=== PATIENT | male | born 1970 | race Caucasian/White ===

== ENCOUNTER 2020-02-21 12:11 | Outpatient (CLI) | payer OTHER, SELFPAY ==
[2020-02-21 23:57] LABS: SARS-CoV-2 RNA PCR Positive
== END 2020-02-21 12:12 | disposition home or self-care (01) ==
LOC: CHSLAB 12:13
PROVIDERS: PCP Family Medicine; Visit Provider Family Medicine
DX: U07.1 COVID-19 (principal)
CPT/HCPCS: 87635; C9803; U0003

== ENCOUNTER 2020-06-04 11:26 | Outpatient (CLI) | payer OTHER, SELFPAY ==
[2020-06-04 14:09] LABS: SARS-CoV-2 Ag Negative (Negative)
== END 2020-06-04 11:27 | disposition home or self-care (01) ==
LOC: CHSLAB 11:28
PROVIDERS: PCP Family Medicine; Visit Provider Family Medicine
DX: Z20.828 Contact with and (suspected) exposure to other viral communicable diseases (principal)
CPT/HCPCS: 87426

== ENCOUNTER 2024-05-16 14:26 | Outpatient (CLI) | payer BC, SELFPAY ==
--- NOTE | ~2024-05-16 | US_ITS ---
EXAMINATION: US soft tissue head and neck DATE: 05/16/2024 14:51 INDICATION: Left neck lump. TECHNIQUE: Multiple grayscale and Doppler ultrasound images of the thyroid were obtained. COMPARISON: None FINDINGS: The right thyroid lobe measures 4.8 x 2.0 x 2.5 cm. The left thyroid lobe measures 6.7 x 4. 4 x 3.8 cm. In the right thyroid lobe, there is a 2.8 cm solid, hypoechoic, wider than tall nodule wi th ill-defined margin without echogenic foci (TI-RADS TR4). In the left thyroid lobe, there is a 3.2 cm solid, isoechoic, taller than wide nodule with ill-defined margin without echogenic foci (TR4). In the left thyroid lobe, there is a 3.3 cm solid, hyperechoic, wider than tall nodule with ill-defined margin without echogenic foci (TR3). IMPRESSION: 1. Thyroid nodules. Ultrasound-guided fine-needle aspiration of 2 nodules is recommended. Reviewed, dictated and finalized at location A. DIMPLING MACHINE OPERATOR IMPRESSION: 1. Thyroid nodules. Ultrasound-guided fine-needle aspiration of 2 nodules is re commended.
== END 2024-05-16 14:27 | disposition home or self-care (01) ==
LOC: CHSIMG 14:28
PROVIDERS: PCP Family Medicine; Visit Provider Family Medicine
DX: E04.2 Nontoxic multinodular goiter (principal); R22.1 Localized swelling, mass and lump, neck
CPT/HCPCS: 76536

== ENCOUNTER 2024-09-20 09:11 | Outpatient (CLI) | payer BC, SELFPAY ==
--- NOTE | ~2024-09-20 | CT_ITS ---
CT scan of the Neck Technique: 2.5 mm axial scans were obtained through the neck after intravenous administration of 75 c c Omnipaque 350. Coronal and sagittal reconstructions of the neck were obtained. Dose reduction techn ique was used on this scan by utilizing automated exposure control and iterative reconstruction techn ique. The dose-length product (DLP) was 602.16 mGy-cm. Clinical History: Follicular neoplasm of the thyroid, hyperparathyroidism Findings: There is no evidence of any significant cervical lymphadenopathy. Several small, nonenlarged jugulo- digastric and posterior cervical lymph nodes are noted bilaterally. Parapharyngeal spaces appear norm al bilaterally. The parotid and submandibular glands appear normal. The pharyngeal mucosal spaces appear normal. No soft tissue masses are seen in the neck. There is a solid left thyroid lobe nodule measuring approximately 5.8 x 4.9 x 6.5 cm in size.. Images of the lung apices reveal no abnormalities. Impression: 5.8 x 4.9 x 6.5 cm solid, enhancing left thyroid lobe nodule. This could reflect a neoplastic nodule. Correlate with prior biopsy results. No distinct evidence for metastatic disease in the neck. Reviewed, dictated and finalized at location . Impression: 5.8 x 4.9 x 6.5 cm solid, enhancing left thyroid lobe nodule. This could reflec t a neoplastic nodule. Correlate with prior biopsy results. No distinct evidence for metastatic disease in the neck.
--- OUTSIDE RECORDS SUMMARY | 2024-09-20 09:44 | XMS_ITS | Referral Summary ---
Author Organization [address] Address [address] [place] [phone] Care Team Providers Care Art Psychotherapist Or Therapist Name Role Phone Tim Montesinos MD Primary Care Provide r Encounters Date Type Department Care Team Description 09/16/2024 4:45 PM CDT Lab [facility] - Lab Collection [address] [place] [address] [address] [place] [address] Follicular neoplasm of thyroid 09/16/2024 Orders Only [facility] Surgery [address] [place] [phone] Wendi Carias MD Follicular neoplasm of thyroid (Primary Dx) 09/16/2024 7:29 AM CDT - 09/16/2024 11:59 PM CDT Hospital Encounter [facility] ([facility]) [address] [place] [id number] Thyroid nodule Discharge Disposition: Discharge to home or self care 09/16/2024 2:00 PM CDT Office Visit [facility] [address] [place] [address] 5 [place] [address] Wendi Carias MD Follicular neoplasm of thyroid 08/31/2024 Telephone [facility] [address] [place] [phone] Tanvi Hoffman RN 08/18/2024 Orders Only [facility] [address] [place] [address] Wendi Carias MD Thyroid nodule 08/11/2024 Orders Only [facility] [address] [place] [phone] Wendi Carias MD Thyroid nodule (Primary Dx) 08/02/2024 Orders Only [facility] [address] [facility] Floor 5 [place] [phone] Wendi Carias MD Thyroid nodule (Primary Dx) 08/02/[address] 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 Gender Identity Not on file Sexual Orientation Not on file Last Filed Vital Signs Vital Sign Reading Time Taken Comments Blood Pressure 123/83 09/16/2024 1:55 PM CDT Pulse 125 09/16/2024 1:55 PM CDT Temperature 36.9 C (98.4 F) 09/16/2024 1:55 PM CDT Respiratory Rate 18 09/16/2024 1:55 PM CDT Oxygen Saturation 98% 09/16/2024 1:55 PM CDT Inhaled Oxygen Concentration - - Weight 85.3 kg (188 lb) 09/16/2024 1:55 PM CDT Height 172.7 cm (5' 8 ) 09/16/2024 1:55 PM CDT Body Mass Index 28.59 09/16/2024 1:55 PM CDT Plan of Treatment Upcoming Encounters Date Type Department Care Team (Latest Contact Info) Description 12/12/2024 7:30 AM CDT Hospital Encounter [facility] Operating [facility] ([facility]) Counts include 234 beds at the [facility] [place] [address] Wendi Carias MD [address] [facility] [phone] [place] [address] 12/12/2024 7:30 AM CDT - 12/12/2024 10:40 AM CDT Surgery [facility] Operating Room [facility] ([facility] Counts include 234 beds at the [facility] [place] [address] Wendi Carias MD [address] [facility] [phone] [place] [address] LEFT THYROID LOBECTOMY Scheduled Procedures Name Priority Associated Diagnoses Date/Ti me LOBECTOMY - THYROID Thyroid nodule 12/12/2024 7:30 AM CDT THYROIDECTOMY - TOTAL Thyroid nodule 12/12/2024 7:30 AM CDT EXCISION NECK/DISSECTION LYM PH NODE Thyroid nodule 12/12/2024 7:30 AM CDT Procedures Procedure Name Priority Date/Time Associated Diagnosis Comments EGFR Routine 09/16/2024 4:36 PM CDT Follicular neoplasm of thyroid CBC WITHOUT DIFFERENTIAL Routine 09/16/2024 4:36 PM CDT Follicular neoplasm of thyroid RENAL FUNCTION PANEL Routine 09/16/2024 4:36 PM CDT Follicular neoplasm of thyroid PROTIME-INR Routine 09/16/2024 4:36 PM CDT Follicular neoplasm of thyroid THYROID FUNCTION CASCADE Routine 09/16/2024 4:36 PM CDT Follicular neoplasm of thyroid US THYROID Schedule Routine, Read Routine (OP Routine) 09/16/2024 8:12 AM CDT Thyroid nodule SURGICAL PATHOLOGY Routine 08/18/2024 2: 50 PM TRUSS PULLER HELPER Thyroid nodule from Last 3 Months Results * eGFR (09/16/2024 4:36 PM CDT) eGFR >90 >=60 mL/min/1. 73 m2 Comment: Interpretive Data Reference Interval Normal >/= 90 mL/min/1.73m2 Mildly decreased* 60 - 89 mL/min/1.73m2 Mildly to moderately decreased 45 - 59 mL/min/1.73m2 Moderately to severely decreased 30 - 44 mL/min/1.73m2 Severely decreased 15 - 29 mL/min/1.73m2 Kidney Failure < 15 mL/min/1.73m2 *Relative to young adult level Estimated glomerular filtration rate is determined by the 2020 CKD-EPI equation recommended by the National Kidney Foundation (A Unifying Approach to GFR Estimation: Recommendations of the NKF-ASK Task Force on Reassessing the Inclusion of Race in Diagnosing Kidney Disease, JASN 2020). The CKD-EPI equation should not be used for patients with unstable renal function and has not been validated in children and those over 70. Current interpretive data was last reviewed 2021. Blood 09/16/2024 4:36 PM CDT 09/16/2024 5:14 PM CDT us Wendi Carias MD LAB BLOOD ORDERABLES Final Resul t Performing Organization Address City/[facility] Co de Phone Number [facility] Department [place] [employer] [place] [place] [address] * Thyroid Function [place] (09/16/2024 4:36 PM CDT) TSH 0.99 0.30 - 4.20 mcIUnit/mL Blood 09/16/2024 4:36 PM CDT 09/16/2024 4:52 PM CDT us Wendi Carias MD LAB BLOOD ORDERABLES Final Resul t Performing Organization Address City/[facility] Co de Phone Number [facility] Department [place] [place] [address] * Protime-INR (09/16/2024 4:36 PM CDT) PT 11.2 9.7 - 13.0 sec INR 1.04 0.90 - 1.20 [facility] Comment: Interpretive data Oral anticoagulant therapeutic ranges: Venous thromboembolism prophylaxis or treatment: 2.0-3.0 CARDIOLOGY Standard range: 2.0-3.0 High-intensity range: 2.5-3.5 Refer to indication-specific guidelines for appropriate target ranges for prosthetic heart valve replacement. Current interpretive data was last revised on 2019. Blood 09/16/2024 4:36 PM CDT 09/16/2024 4:52 PM CDT us Wendi Carias MD LAB BLOOD ORDERABLES Final Resul t [facility] [place] [address] * (ABNORMAL) CBC without differential (09/16/2024 4:36 PM CDT) WBC 8.8 3.8 - 9.9 K/cumm Comment:Testing performed by : [facility], [address] [place] [address] Hgb 16.6 13.0 - 17.5 g/dL [facility] Comment:Testing performed by : [facility], [address] [place] [address] Hct 48.2 38.9 - 50.3 % [facility] Comment:Testing performed by : [facility], [address] [place] [address] Plt 341 150 - 400 K/cumm [facility] Comment:Testing performed by : [facility], [address] [place] [address] MPV 6.7(L) 6.8 - 10.4 fL [facility] Comment:Testing performed by : [facility], [address] [place] [address] RBC 5.49 4.30 - 5.80 M/cumm [facility] Comment:Testing performed by : [facility], [address] [place] [address] MCV 87.8 81.3 - 96.4 fL [facility] Comment:Testing performed by : [facility], [address] [place] [address] MCH 30.2 27.1 - 33.3 pg [facility] Comment:Testing performed by : [facility], [address] [place] [phone] MCHC 34.4 32.3 - 35.7 g/dL [facility] Comment:Testing performed by : [facility], [address] [place] [phone] RDW CV 13.4 11.1 - 14.9 % [facility] Comment:Testing performed by : [facility], [facility] [place] [address] Blood 09/16/2024 4:36 PM CDT 09/16/2024 4:39 PM CDT us Wendi Carias MD LAB BLOOD ORDERABLES Final Resul t [facility] One [facility] Department [place] [address] * Renal function panel (09/16/2024 4:36 PM CDT) Sodium 143 135 - 145 mmol/L Potassium, pl 4.3 3.3 - 4.9 mmol/L [facility] Chloride 108 97 - 110 mmol/L [facility] CO2 27 22 - 32 mmol/L [facility] Anion gap 8 2 - 15 mmol/L [facility] BUN 16 6 - 25 mg/dL [facility] Creatinine 0.97 0.80 - 1.30 mg/dL [facility] Glucose 94 70 - 199 mg/dL [facility] Comment: Interpretive Data Fasting glucose >/= 126 mg/dl is diagnostic for diabetes. Fasting is defined as no caloric intake for at least 8 hours. Fasting glucose between 100 mg/dl to 125 mg/dl is diagnostic of prediabetes. In a patient with classic symptoms of hyperglycemia or hyperglycemic crisis, a random glucose >/= 200 mg/dl is diagnostic for diabetes. In the absence of unequivocal hyperglycemia, results should be confirmed by repeat testing. The classification and Diagnosis of Diabetes Diabetes Care 2021; 46: S19-S40. Current interpretive data was last revised 2022. Calcium 9.5 8.5 - 10.3 mg/dL [facility] Phosphorus, pl 3.1 2.3 - 4.5 mg/dL [facility] Albumin 4.3 3.5 - 5.0 g/dL [facility] Blood 09/16/2024 4:36 PM CDT 09/16/2024 4:52 PM CDT us Wendi Carias MD LAB BLOOD ORDERABLES Final Resul t [facility] One [facility] Department [place] [address] * US Thyroid (09/16/2024 8:12 AM CDT) Anatomical Region Laterality Modality Head and Neck N/A Ultrasound 09/16/2024 9:05 AM CDT Impressions 09/16/2024 9:32 AM CDT Right and left-sided nodules that do not demonstrate definite suspicious imaging features. However, given previous histology of atypia of undetermined significance, consider repeat FNA with genetic studies if not previously performed. ACR TI-RADS Recommendations FNA should only be recommended on a maximum of 2 nodules. A recommendation for follow-up should only be provided for a maximum of 4 nodules. TR5 (>=7 points) (risk of malignancy > 20%) >=1 cm: FNA 0.5-0.9 cm: follow-up US every year for 5 years <0.5 cm: no further evaluation TR4 (4-6 points) (risk of malignancy 5-20%) >=1.5 cm: FNA 1-1.4 cm: follow-up US in 1, 2, 3, and 5 years <1.0 cm: no further evaluation TR3 (3 points) (risk of malignancy 2-5%) >=2.5 cm: FNA 1.5-2.4 cm: follow-up US in 1, 3, and 5 years <1.5 cm: no further evaluation TR2 (2 points) and TR1 (0 points) (risk of malignancy < 2%) No FNA or follow-up US Dictated by: Deny Luis M.D. (Ramanan) The radiology attending physician has personally reviewed this study, and had reviewed and/or edited this written report and agrees with it. Electronically signed by: Maico Carmichael M.D. Narrative 09/16/2024 9:32 AM CDT EXAMINATION: THYROID SONOGRAM HISTORY: 53-year-old male with a history of multinodular goiter. Underwent biopsy of the right lower lobe and left lobe Prior Biopsy: Yes, 08/18/2024, atypia of undetermined significance. Patient Risk Factors: None Prior Ultrasound: None FINDINGS: The thyroid is enlarged in size. Size right lobe: 6.7 cm craniocaudal, 2.7 cm transverse, 2.3 cm AP. Size left lobe: 9 cm craniocaudal, 5.3 cm transverse, 5.0 cm AP. Size isthmus: 0.7 cm AP. Estimated total number of nodules >/= 1 cm: 2 Number of spongiform nodules >/= 2 cm not described below (TR1): 0 Number of mixed cystic and solid nodules >/= 1.5 cm not described below (TR2): 0 Nodule 1: Location: Right lower (conglomerate of nodules) . Size: 3.2 cm craniocaudal x 1.9 cm transverse x 1.5 cm AP Maximum Size: 3.2 cm Composition: Mixed cystic and solid (1) Echogenicity: Isoechoic (1) Shape: Not taller than wide (0) Margins: Lobulated/irregular (2), likely secondary to a conglomerate of nodules rather than a single nodule with lobulated margins. Echogenic foci: None (0) ACR TI-RADS total points: 4 ACR TI-RADS risk category: TR4 (4-6 points) Prior biopsy: Yes, 08/18/2024, atypia of undetermined significance Nodule 2: Location: Left thyroid lobe . Size: 6.1 cm craniocaudal x 3.6 cm transverse x 7.3 cm AP Maximum Size: 7.3 cm Composition: Mixed cystic and solid (1) Echogenicity: Isoechoic (1) Shape: Not taller than wide (0) Margins: Smooth (0) Echogenic foci: None (0) ACR TI-RADS total points: 2 ACR TI-RADS risk category: TR2 (2 points) Prior biopsy: Yes, atypia of undetermined significance. Procedure Note Maico Carmichael MD - 09/16/2024 EXAMINATION: THYROID SONOGRAM HISTORY: 53-year-old male with a history of multinodular goiter. Underwent biopsy of the right lower lobe and left lobe Prior Biopsy: Yes, 08/18/2024, atypia of undetermined significance. Patient Risk Factors: None Prior Ultrasound: None FINDINGS: The thyroid is enlarged in size. Size right lobe: 6.7 cm craniocaudal, 2.7 cm transverse, 2.3 cm AP. Size left lobe: 9 cm craniocaudal, 5.3 cm transverse, 5.0 cm AP. Size isthmus: 0.7 cm AP. Estimated total number of nodules >/= 1 cm: 2 Number of spongiform nodules >/= 2 cm not described below (TR1): 0 Number of mixed cystic and solid nodules >/= 1.5 cm not described below (TR2): 0 Nodule 1: Location: Right lower (conglomerate of nodules) . Size: 3.2 cm craniocaudal x 1.9 cm transverse x 1.5 cm AP Maximum Size: 3.2 cm Composition: Mixed cystic and solid (1) Echogenicity: Isoechoic (1) Shape: Not taller than wide (0) Margins: Lobulated/irregular (2), likely secondary to a conglomerate of nodules rather than a single nodule with lobulated margins. Echogenic foci: None (0) ACR TI-RADS total points: 4 ACR TI-RADS risk category: TR4 (4-6 points) Prior biopsy: Yes, 08/18/2024, atypia of undetermined significance Nodule 2: Location: Left thyroid lobe . Size: 6.1 cm craniocaudal x 3.6 cm transverse x 7.3 cm AP Maximum Size: 7.3 cm Composition: Mixed cystic and solid (1) Echogenicity: Isoechoic (1) Shape: Not taller than wide (0) Margins: Smooth (0) Echogenic foci: None (0) ACR TI-RADS total points: 2 ACR TI-RADS risk category: TR2 (2 points) Prior biopsy: Yes, atypia of undetermined significance. IMPRESSION: Right and left-sided nodules that do not demonstrate definite suspicious imaging features. However, given previous histology of atypia of undetermined significance, consider repeat FNA with genetic studies if not previously performed. ACR TI-RADS Recommendations FNA should only be recommended on a maximum of 2 nodules. A recommendation for follow-up should only be provided for a maximum of 4 nodules. TR5 (>=7 points) (risk of malignancy > 20%) >=1 cm: FNA 0.5-0.9 cm: follow-up US every year for 5 years <0.5 cm: no further evaluation TR4 (4-6 points) (risk of malignancy 5-20%) >=1.5 cm: FNA 1-1.4 cm: follow-up US in 1, 2, 3, and 5 years <1.0 cm: no further evaluation TR3 (3 points) (risk of malignancy 2-5%) >=2.5 cm: FNA 1.5-2.4 cm: follow-up US in 1, 3, and 5 years <1.5 cm: no further evaluation TR2 (2 points) and TR1 (0 points) (risk of malignancy < 2%) No FNA or follow-up US Dictated by: Deny Luis M.D. (Ramanan) The radiology attending physician has personally reviewed this study, and had reviewed and/or edited this written report and agrees with it. Electronically signed by: Maico Carmichael M.D. Wendi Carias MD IM US PROCEDURES Final Result * Surgical pathology (08/18/2024 2:50 PM TRUSS PULLER HELPER) Tissue (Miscellaneous) 08/18/2024 2:50 PM TRUSS PULLER HELPER 08/18/2024 2:50 PM TRUSS PULLER HELPER Narrative [facility] PATHOLOGY LAB - 08/25/2024 5:37 PM TRUSS PULLER HELPER EPIC results best viewed via link to PDF [facility] Pathology Consult Service [address], [place] [address] Note to Patients: This report may contain a detailed description of human tissue sent by a health care provider to the laboratory for pathologic evaluation. The content of this report is essential for diagnosis and may provide important critical findings. This information may be unfamiliar to patients to review without a medical professional present. It is advised that the patient review this report in the presence of a health care provider who can answer questions and explain the details. SURGICAL PATHOLOGY REPORT * Consult Report * [facility] is providing an additional review of previously collected tissue. FINAL Patient Name: MARIIA BLAND Address: [address] [id number] Gender: M : 1970 (Age: 53) Hospital #: [id number] Patient Type: WUIO Location: UNKNOWN Taken: 08/18/2024 Received: 08/18/2024 Accessioned: 08/19/2024 Reported: 08/25/2024 Physician(s): Wendi Carias MD [facility] Department of Pathology [address] [place] [address] P: [phone] F: [phone] Histology: [phone] Diagnosis: Consult material received from [place], [place] (OSC: [id number]; 07/25/2024): A. Thyroid, right lower lobe, fine needle aspiration: - Atypia of undetermined significance (see description and comment) B. Thyroid, left lobe, fine needle aspiration - Atypia of undetermined significance (see description and comment) k/08/25/2024 17:33 By this signature, I attest that the above diagnosis is based upon my personal examination of the slides(and/or other material indicated in the diagnosis). Kanika Ann M.D. Report Electronically Reviewed and Signed Out By Kanika Ann M.D. 08/25/2024 17:37:39 Diagnosis Comment Direct smears from the right lower lobe show abundant background colloid. There is a relatively uniform oncocytic population, with a single cell with a markedly enlarged nucleus nuclear features of papillary thyroid carcinoma are not identified. A cell block shows mixed follicular epithelial cells. Direct smears from the left lobe show abundant background colloid, and a relatively uniform oncocytic population. We note the outside diagnosis of suspicious for follicular neoplasm. Current criteria preclude assignment of this diagnosis for lesions with abundant colloid. Cell block shows no additional features. The marked atypia in the right lower lobe aspirate certainly warrants a diagnosis of atypia of undetermined significance. The relatively uniform oncocytic population in the left lobe aspirate also meet criteria for atypia of undetermined significance. By report, both of these lesions had sample sent to [facility] for molecular classifies assays, by report both were interpreted as benign with a reported risk of malignancy of roughly 4%. Microscopic Description and Comment: Unless gross-only is specified, the final diagnosis for each specimen is based on a microscopic examination of each tissue sample. History: The patient is a 53-year-old man with history of thyroid nodule. Materials Received: Received for review are eight slides labeled [id number], accompanied by a corresponding pathology report. The material originates from [place], [place]. Selected slide(s) may be digitally scanned for our files, and all materials are returned to the referring institution, along with a copy of our final report. Any testing required for diagnostic purposes was performed in the Department of Pathology and Immunology at [facility], [address] [place] [id number] CLIA # [id number] The performance characteristics of the testing cited in this report (if any) were determined by the [facility] Department of Pathology and Immunology [facility], as part of an ongoing personnel quality assurance auditor program and in compliance with federally mandated regulations drawn from the Clinical Laboratory Improvement Act of 1988 (CLIA '88). Some of these tests rely on the use of analyte specific reagents (ASR) and are subject to specific labeling requirements by the US Food and Drug Administration. Such diagnostic tests may only be performed in a facility that is certified by the Department of Health and Human Services as a high complexity laboratory under CLIA '88. The FDA has determined that such clearance or approval is not necessary. ASRs should not be regarded as investigational or for research. ASRs were developed and the performance characteristics determined by the [facility], [facility] Department of Pathology and Immunology. It has not been cleared or approved by the U.S. Food and Drug Administration. Any test designated as LDT was developed and its performance characteristics determined by [facility]. It has not been cleared or approved by the FDA. This test is used for clinical purposes and should not be regarded as investigational or for research. Report images and/or scanned reports, if included, only viewable in PDF version of report. us Wendi Carias MD LAB PATHOLOGY ORDERABLES Final R esult [facility] PATHOLOGY LAB [address] [id number] from Last 3 Months Insurance ANTHEM ACCESS CHOICE ANTHEM ACCESS CHOICE Care Teams Art Psychotherapist Or Therapist Relationship Specialty Start Date End Date Tim Montesinos MD [address] [place] [address] PCP - General Family Medicine 07/27/24
--- OUTSIDE RECORDS SUMMARY | 2024-09-20 09:44 | XMS_ITS | Clinical Summary ---
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 Name Role Phone Tim Montesinos MD Primary Care Provide r Allergies No known active allergies Medications No known medications Active Problems Problem Noted Date Diagnosed Date Thyroid nodule 09/16/2024 Encounters Date Type Department Care Team Description 09/16/2024 4:45 PM CDT Lab [facility] - Lab Collection [address] [place] [address] Follicular neoplasm of thyroid 09/16/2024 2:00 PM CDT Office Visit [facility] Surgery [address] [place] [address] Wendi Carias MD Follicular neoplasm of thyroid 09/16/2024 7:29 AM CDT - 09/16/2024 11:59 PM CDT Hospital Encounter [facility] [address] [place] [address] Thyroid nodule Discharge Disposition: Discharge to home or self care 09/16/2024 Orders Only [facility] Surgery [address] [place] [phone] Wendi Carias MD Follicular neoplasm of thyroid (Primary Dx) 08/31/2024 Telephone [facility] Surgery [address] [place] [phone] Tanvi Hoffman RN 08/18/2024 Orders Only [address] [address] Wendi Carias MD Thyroid nodule 08/11/2024 Orders Only [facility] Surgery [address] [facility] Floor 5 [place] [address] Wendi Carias MD Thyroid nodule (Primary Dx) 08/02/2024 Orders Only [facility] Surgery [address] [facility] Floor 5 [place] [address] Wendi Carias MD Thyroid nodule (Primary Dx) 08/02/2024 Telephone [facility] [address] [place] [address] Michaela Avery RN FOLLOW UP ON REFERRAL from Last 3 Months Social History Tobacco Use Types Packs/Day Years Used Date Smoking Tobacco: Former Cigarettes Smokeless Tobacco: Never Tobacco Cessation:Counseling Given: Yes Sex and Gender Information Value Date Recorded Sex Assigned at Not on file Legal Sex Male 4:20 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 TESTER Gender Identity Not on file Sexual Orientation Not on file Obstetrics History Last Filed Vital Signs Vital Sign Reading [...] Description 12/12/2024 7:30 AM CDT Hospital Encounter [facility]) Replaced by [facility] [place] [address] Wendi Carias MD [address] [phone] [place] [address] 12/12/2024 7:30 AM CDT - 12/12/2024 10:40 AM CDT Surgery [facility]) Replaced by [facility] [place] [address] Wendi Carias MD [address] [phone] [place] [address] LEFT THYROID LOBECTOMY Scheduled Procedures Name Priority Associated Diagnoses Date/Ti me LOBECTOMY - THYROID Thyroid nodule 12/12/2024 7:30 AM CDT THYROIDECTOMY - TOTAL Thyroid nodule 12/12/2024 7:30 AM CDT EXCISION NECK/DISSECTION LYM PH NODE Thyroid nodule 12/12/2024 7:30 AM CDT Health Maintenance Due Date Last Done Comments Colon Cancer Screening-Colonoscopy 1970 Depression Screening 1970 Hepatitis C Screening 1970 Prostate Cancer Screening-PSA 1972 Hepatitis B Screening 1990 Regular Well Visit/Exam 18-64 1990 DTaP/Tdap/Td Vaccine (2 - Td or Tdap) 03/27/2020 03/27/2010 Zoster Vaccine (2 of 2) 04/13/2023 02/16/2023 Covid-19 Vaccine (4 - 2023-2 5 season) 2024 06/25/2021, 09/18/2020, 08/28/2020 Influenza Vaccine (#1) 2024 Pneumococcal vaccine <65 Aged Out No longer eligible based on patient's age to complete this topic Procedures Procedure Name Priority Date/Time Associated Diagnosis [...] SURGICAL PATHOLOGY Routine 08/18/2024 2: 50 PM RAYON TESTER Thyroid nodule from Last 3 Months Results [...] MD LAB BLOOD ORDERABLES Final Resul t [facility] One [facility] [place] [address] * Thyroid Function [place] (09/16/2024 4:36 PM CDT) TSH 0.99 0.30 - 4.20 mcIUnit/mL Blood 09/16/2024 4:36 PM CDT 09/16/2024 4:52 PM CDT us Wendi Carias MD LAB BLOOD ORDERABLES Final Resul t Performing Organization Address [facility] de Phone Number [facility] One [facility] [place] [address] * Protime-INR (09/16/2024 4:36 PM CDT) PT 11.2 9.7 - 13.0 sec INR 1.04 0.90 - 1.20 [facility] Comment: Interpretive data Oral anticoagulant therapeutic ranges: Venous thromboembolism prophylaxis or treatment: 2.0-3.0 CARDIOLOGY Standard range: 2.0-3.0 High-intensity range: 2.5-3.5 Refer to indication-specific guidelines for appropriate target ranges for prosthetic heart valve replacement. Current interpretive data was last revised on 2019. Blood 09/16/2024 4:36 PM CDT 09/16/2024 4:52 PM CDT Wendi Carias MD LAB BLOOD ORDERABLES Final Resul t Performing Organization Address [facility] de Phone Number [facility] One [facility] [place] [address] * (ABNORMAL) CBC without differential (09/16/2024 4:36 PM CDT) WBC 8.8 3.8 - 9.9 K/cumm Comment:Testing performed by : [facility] Heme Lab, [address] [place] [phone] Hgb 16.6 13.0 - 17.5 g/dL CER[facility] BJ Comment:Testing performed by : [facility], [address] [place] [address] Hct 48.2 38.9 - 50.3 % [facility] BJ Comment:Testing performed by : [facility]e [facility], [address] [place] [address] Plt 341 150 - 400 K/cumm [facility]ER[facility] BJ Comment:Testing performed by : [facility]e [facility], [address] [place] [address] MPV 6.7(L) 6.8 - 10.4 fL [facility] Comment:Testing performed by : [facility], [address] [place] [address] RBC 5.49 4.30 - 5.80 M/cumm [facility] Comment:Testing performed by : [facility]e [facility], [address] [place] [address] MCV 87.8 81.3 - 96.4 fL [facility] Comment:Testing performed by : [facility], [address] [place] [address] MCH 30.2 27.1 - 33.3 pg [facility] Comment:Testing performed by : [facility], [address] [place] [address] MCHC 34.4 32.3 - 35.7 g/dL [facility] Comment:Testing performed by : [facility], [address] [place] [address] RDW CV 13.4 11.1 - 14.9 % [facility] Comment:Testing performed by : [facility]e [facility], [address] [place] [address] Blood 09/16/2024 4:36 PM CDT 09/16/2024 4:39 PM CDT us Wendi Carias MD LAB BLOOD ORDERABLES Final Resul t [facility] One [facility] Department [place] [address] * Renal function panel (09/16/2024 4:36 PM CDT) Sodium 143 135 - 145 mmol/L Potassium, pl 4.3 3.3 - 4.9 mmol/L [facility] Chloride 108 97 - 110 mmol/L [facility] CO2 27 22 - 32 mmol/L [facility] Anion gap 8 2 - 15 mmol/L [facility] BUN 16 6 - 25 mg/dL [facility] Creatinine 0.97 0.80 - 1.30 mg/dL [facility] Glucose 94 70 - 199 mg/dL [facility] Comment: Interpretive Data Fasting glucose >/= 126 [...] 2022. Calcium 9.5 8.5 - 10.3 mg/dL [facility] Phosphorus, pl 3.1 2.3 - 4.5 mg/dL [facility] Albumin 4.3 3.5 - 5.0 g/dL [facility] Blood 09/16/2024 4:36 PM CDT 09/16/2024 4:52 PM CDT us Wendi Carias MD LAB BLOOD ORDERABLES Final Resul t [facility] One [facility] [place] [address] * US Thyroid (09/16/2024 8:12 AM CDT) [...] by: Maico Carmichael M.D. Wendi Carias MD IMG US PROCEDURES Final Result * Surgical pathology (08/18/2024 2:50 PM RAYON TESTER) Tissue (Miscellaneous) 08/18/2024 2:50 PM RAYON TESTER 08/18/2024 2:50 PM RAYON TESTER Narrative [facility] PATHOLOGY LAB - 08/25/2024 5:37 PM RAYON TESTER EPIC results best viewed via link to PDF [facility] Pathology Consult Service [address]is Vargas, [address], [place] [address] Note to Patients: This report may [...] SURGICAL PATHOLOGY REPORT * Consult Report * [facility] is providing an additional review of previously collected tissue. FINAL Patient Name: HIREN BLAND Address: [address] [place] [address] Gender: M : 1970 (Age: 53) Hospital #: [id number] Patient Type: [facility] Location: UNKNOWN Taken: 08/18/2024 Received: 08/18/2024 Accessioned: 08/19/2024 Reported: 08/25/2024 Physician(s): Wendi Carias MD [facility] Department of Pathology [facility] [place] [id number] P: [phone] F: [phone] Histology: [phone] Diagnosis: Consult material received from [place], [place] (OSC: [id number]; 07/25/2024): A. Thyroid, right [...] of these lesions had sample sent to [facility] for molecular classifies assays, by report both [...] corresponding pathology report. The material originates from [place], [place]. Selected slide(s) may be digitally scanned for our files, and all materials are returned to the referring institution, along with a copy of our final report. Any testing required for diagnostic purposes was performed in the Department of Pathology and Immunology at [facility], [address] [place] [address] CLIA # [id number] The performance characteristics of the testing cited in this report (if any) were determined by the [facility] Department of Pathology and Immunology [facility], as part of an ongoing quality analyst program and in compliance with federally mandated [...] and the performance characteristics determined by the [facility], [facility] Department of Pathology and Immunology. It has not been cleared or approved by the U.S. Food and Drug Administration. Any test designated as LDT was developed and its performance characteristics determined by [facility]. It has not been cleared or approved by the FDA. This test is used for clinical purposes and should not be regarded as investigational or for research. Report images and/or scanned reports, if included, only viewable in PDF version of report. us Wendi Carias MD LAB PATHOLOGY ORDERABLES Final R esult [facility] PATHOLOGY LAB [address] [address] from Last 3 Months Insurance [employer] CHOICE [employer] ACCESS CHOICE Care Teams Drywall Foreman Relationship Specialty Start Date End Date Tim Montesinos MD [address] [place], [place] [id number] PCP - General Family Medicine 07/27/24
== END 2024-09-20 09:12 | disposition home or self-care (01) ==
PROVIDERS: PCP Family Medicine
DX: D49.7 Neoplasm of unspecified behavior of endocrine glands and other parts of nervous system (principal); E04.1 Nontoxic single thyroid nodule
CPT/HCPCS: 70491; Q9967

== ENCOUNTER 2024-10-06 14:37 | Outpatient (CLI) | payer BC, SELFPAY ==
--- OUTSIDE RECORDS SUMMARY | 2024-10-06 14:43 | XMS_ITS | Referral Summary ---
Author Organization [address] Address [address] [place] [phone] Care Team Providers Care Business Liaison Officer Name Role Phone Tim Montesinos MD Primary Care Provide r Encounters Date Type Department Care Team Description 10/05/2024 Telephone [facility] Surgery [address] [place] [address] 5 [place] [phone] Tanvi Hoffman, RN 10/04/2024 Telephone [facility] Surgery [address] [place] [address] 5 [place] [address] Tanvi Hoffman, RN 09/22/2024 Telephone [facility] Surgery [address] [place] [address] 8 [place] [address] Wendi Carias MD Medication Request 09/16/2024 4:45 PM CDT Lab [facility] - Lab Collection [address] [place] [address] 5 [place] [address] Follicular neoplasm of thyroid 09/16/2024 Orders Only [facility] Surgery [address] [place] [address] 5 [place] [address] Wendi Carias MD Follicular neoplasm of thyroid (Primary Dx) 09/16/2024 7:29 AM CDT - 09/16/2024 11:59 PM CDT Hospital Encounter [facility]) [address] [place] [address] Thyroid nodule Discharge Disposition: Discharge to home or self care 09/16/2024 2:00 PM CDT Office Visit [facility] Surgery [address] [place] [address] 5 [place] [address] Wendi Carias MD Follicular neoplasm of thyroid 08/31/2024 Telephone [facility] Surgery [address] [facility] 5 [place] [address] Tanvi Hoffman RN 08/18/2024 Orders Only [facility] [address] [place] [address] Wendi Carias MD Thyroid nodule 08/11/2024 Orders Only [facility] Surgery [address] [facility] [address] [place] [address] Wendi Carias MD Thyroid nodule (Primary Dx) 08/02/2024 Orders Only [facility] Surgery [address] [facility] 5 [place] [address] Wendi Carias MD Thyroid nodule (Primary Dx) 08/02/2024 Telephone [facility] [address] [place] [address] Michaela Avery RN FOLLOW UP [...] on file 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 Gender Identity Not on file Sexual Orientation [...] Description 12/12/2024 7:30 AM CDT Hospital Encounter [facility] [address] [place] [address] Wendi Carias MD [address] [facility] [phone] [place] [address] 12/12/2024 7:30 AM CDT - 12/12/2024 10:40 AM CDT Surgery [facility]) [address] [place] [address] Wendi Carias MD [address] [facility] [phone] [place] [address] LEFT THYROID LOBECTOMY Scheduled Procedures Name Priority [...] SURGICAL PATHOLOGY Routine 08/18/2024 2: 50 PM PROOFING MACHINE OPERATOR Thyroid nodule from Last 3 Months Results [...] ORDERABLES Final Resul t Performing Organization Address [facility] Co de Phone Number [facility] [place] [address] * Thyroid Function [place] (09/16/2024 4:36 PM CDT) TSH 0.99 0.30 - 4.20 mcIUnit/mL Blood 09/16/2024 4:36 PM CDT 09/16/2024 4:52 PM CDT us Wendi Carias MD LAB BLOOD ORDERABLES Final Resul t Performing Organization Address [facility] Co de Phone Number [facility] Department [place] [address] * Protime-INR (09/16/2024 4:36 PM CDT) PT 11.2 9.7 - 13.0 sec INR 1.04 0.90 - 1.20 [facility] Comment: Interpretive data Oral anticoagulant therapeutic ranges: Venous thromboembolism prophylaxis or treatment: 2.0-3.0 CARDIOLOGY Standard range: 2.0-3.0 High-intensity range: 2.5-3.5 Refer to indication-specific guidelines for appropriate target ranges for prosthetic heart valve replacement. Current interpretive data was last revised on 2019. Blood 09/16/2024 4:36 PM CDT 09/16/2024 4:52 PM CDT us Wendi Carias MD LAB BLOOD ORDERABLES Final Resul t [facility] One [facility] [place] [address] * (ABNORMAL) CBC without differential (09/16/2024 4:36 PM CDT) Pathologist [facility] WBC 8.8 3.8 - 9.9 K/cumm Comment:Testing performed by : [facility] Heme Lab, [address] [place] [address] Hgb 16.6 13.0 - 17.5 g/dL [facility] Comment:Testing performed by : [facility], [address] [place] [address] Hct 48.2 38.9 - 50.3 % [facility] Comment:Testing performed by : [facility], [address] [place] [address] Plt 341 150 - 400 K/cumm [facility] Comment:Testing performed by : [facility], [address] [place] [address] MPV 6.7(L) 6.8 - 10.4 fL [facility] Comment:Testing performed by : [facility], [address] [place] [address] RBC 5.49 4.30 - 5.80 M/cumm [facility] Comment:Testing performed by : [facility], [address] [place] [phone] MCV 87.8 81.3 - 96.4 fL [facility] Comment:Testing performed by : [facility], [address] [place] [address] MCH 30.2 27.1 - 33.3 pg [facility] Comment:Testing performed by : [facility]e [facility], [address] [place] [address] MCHC 34.4 32.3 - 35.7 g/dL [facility] Comment:Testing performed by : [facility], [address] [place] [address] RDW CV 13.4 11.1 - 14.9 % [facility] Comment:Testing performed by : [facility], [address] [place] [address] Blood 09/16/2024 4:36 PM CDT 09/16/2024 4:39 PM CDT us Wendi Carias MD LAB BLOOD ORDERABLES Final Resul t [facility] One [facility] Department [place] [address] * Renal function panel (09/16/2024 4:36 PM CDT) Sodium 143 135 - 145 mmol/L Potassium, pl 4.3 3.3 - 4.9 mmol/L [facility] Chloride 108 97 - 110 mmol/L [facility] CO2 27 22 - 32 mmol/L [facility] Anion gap 8 2 - 15 mmol/L [facility] BUN 16 6 - 25 mg/dL [facility] Creatinine 0.97 0.80 - 1.30 mg/dL [facility] Glucose 94 70 - 199 mg/dL [facility] Comment: Interpretive Data Fasting glucose >/= [...] 2022. Calcium 9.5 8.5 - 10.3 mg/dL [facility] Phosphorus, pl 3.1 2.3 - 4.5 mg/dL [facility] Albumin 4.3 3.5 - 5.0 g/dL [facility] Blood 09/16/2024 4:36 PM CDT 09/16/2024 4:52 PM CDT us Wendi Carias MD LAB BLOOD ORDERABLES Final Resul t [facility] One [facility] Department [place] [address] * US Thyroid (09/16/2024 8:12 AM CDT) [...] and agrees with it. Electronically signed by: Maioc Carmichael M.D. us Wendi Carias MD IMG US PROCEDURES Final Result * Surgical pathology (08/18/2024 2:50 PM PROOFING MACHINE OPERATOR) Tissue specimen (specimen) (Miscellaneous) 08/18/2024 2:50 PM PROOFING MACHINE OPERATOR 08/18/2024 2:50 PM PROOFING MACHINE OPERATOR [facility] PATHOLOGY LAB - 08/25/2024 5:37 PM PROOFING MACHINE OPERATOR EPIC results best viewed via link to PDF [facility] Pathology Consult Service Aris Vargas, [address], [place] [address] Note to Patients: This report [...] SURGICAL PATHOLOGY REPORT * Consult Report * [facility] is providing an additional review of previously collected tissue. FINAL Patient Name: HIREN BLAND Address: [address] [place] [address] Gender: M : 1970 (Age: 53) Hospital #: [id number] Patient Type: [facility] Location: UNKNOWN Taken: 08/18/2024 Received: 08/18/2024 Accessioned: 08/19/2024 Reported: 08/25/2024 Physician(s): Wendi Carias MD [facility] Department of Pathology [address] [place] [address] P: [phone] F: [phone] Histology: [phone] Diagnosis: Consult material received from [place], [place] (OSC: [id number]; 07/25/2024): A. Thyroid, right lower lobe, fine needle aspiration: - Atypia of undetermined significance (see description and comment) B. Thyroid, left lobe, fine needle aspiration - Atypia of undetermined significance (see description and comment) hrk/08/25/2024 17:33 By this signature, I attest that [...] of these lesions had sample sent to [facility] for molecular classifies assays, by report both [...] corresponding pathology report. The material originates from [place], [place]. Selected slide(s) may be digitally scanned for our files, and all materials are returned to the referring institution, along with a copy of our final report. Any testing required for diagnostic purposes was performed in the Department of Pathology and Immunology at [facility], [address] [place] [id number] CLIA # [id number] The performance characteristics of the testing cited in this report (if any) were determined by the [facility] Department of Pathology and Immunology [facility], as part of an ongoing quality assistant program and in compliance with federally mandated [...] and the performance characteristics determined by the [facility], [facility] Department of Pathology and Immunology. It has not been cleared or approved by the U.S. Food and Drug Administration. Any test designated as LDT was developed and its performance characteristics determined by [facility]. It has not been cleared or approved by the FDA. This test is used for clinical purposes and should not be regarded as investigational or for research. Report images and/or scanned reports, if included, only viewable in PDF version of report. us Wendi Carias MD LAB PATHOLOGY ORDERABLES Final R esult [facility] PATHOLOGY LAB [address] [address] from Last 3 Months Insurance [employer] CHO[employer] Care Teams Business Liaison Officer Relationship Specialty Start Date End Date Tim Montesinos MD [address] [place] [address] PCP - General Family Medicine 07/27/24
--- OUTSIDE RECORDS SUMMARY | 2024-10-06 14:43 | XMS_ITS | Clinical Summary ---
Author Organization [address] Address [address] [place] [phone] Care Team Providers Care Special Education Paraeducator Name Role Phone Tim Montesinos MD Primary Care Provide r Allergies No known active allergies Medications No known medications Active Problems Problem Noted Date Diagnosed Date Thyroid nodule 09/16/2024 Encounters Date Type Department Care Team Description 10/05/2024 Telephone [facility] [address] [place] [address] Floor 5 [place] [address] Tanvi Hoffman RN 10/04/2024 Telephone [facility] [address] [place] [address] 5 [place] [address] Tanvi Hoffman, MAX 09/22/2024 Telephone [facility] [address] [place] [address] Floor 8 [place] [address] Wendi Carias MD Medication Request 09/16/2024 4:[address] [facility] - Lab Collection [address] [place] [address] Floor 5 [place] [address] Follicular neoplasm of thyroid 09/16/2024 2:00 PM CDT Office Visit [facility] [address] [place] [address] Floor 5 [place] [address] Wendi Carias MD Follicular neoplasm of thyroid 09/16/2024 7:29 AM CDT - 09/16/2024 11:59 PM CDT Hospital Encounter [facility]) [address] [place] [address] Thyroid nodule Discharge Disposition: Discharge to home or self care 09/16/2024 Orders Only [facility] [address] [facility] 5 [place] [address] Wendi Carias MD Follicular neoplasm of thyroid (Primary Dx) 08/31/2024 Telephone [facility] [address] [address] Tanvi Hoffman RN 08/18/2024 Orders Only [facility] [address] [place] [address] Wendi Carias MD Thyroid nodule 08/11/2024 Orders Only [facility] [address] [place] [phone] Wendi Carias MD Thyroid nodule (Primary Dx) 08/02/2024 Orders Only [facility] [address] [place] [phone] Wendi Carias MD Thyroid nodule (Primary Dx) 08/02/2024 Telephone [facility] [address] [place] [address] Michaela Avery RN FOLLOW UP ON REFERRAL from Last 3 Months Social History Tobacco Use Types Packs/Day Years Used Date Smoking Tobacco: Former Cigarettes Smokeless Tobacco: Never Tobacco Cessation:Counseling Given: Yes Sex and Gender Information Value Date Recorded Sex Assigned at Not on file 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) [address] [place] [address] Wendi Carias MD [address] [facility] [phone] [place] [address] 12/12/2024 7:30 AM CDT - 12/12/2024 10:[address] [facility]) [address] [place] [address] Wendi Carias MD [address] [facility] [phone] [place] [address] LEFT THYROID LOBECTOMY Scheduled Procedures Name Priority [...] season) 2024 06/25/2021, 09/18/2020, 08/28/2020 Influenza Vaccine (Season Ended) 2025 Pneumococcal vaccine <65 Aged Out No longer [...] SURGICAL PATHOLOGY Routine 08/18/2024 2: 50 PM SWIMMING POOL ATTENDANT Thyroid nodule from Last 3 Months Results [...] MD LAB BLOOD ORDERABLES Final Resul t [facility] [place] [address] * Thyroid Function Solo (09/16/2024 4:36 PM CDT) Pathologist [facility] TSH 0.99 0.30 - 4.20 mcIUnit/mL Blood 09/16/2024 4:36 PM CDT 09/16/2024 4:52 PM CDT Wendi Carias MD LAB BLOOD ORDERABLES Final Resul t Performing Organization Address [facility] [place] [address] * Protime-INR (09/16/2024 4:36 PM CDT) [facility] PT 11.2 9.7 - 13.0 sec INR 1.04 0.90 - 1.20 [facility] Comment: Interpretive data Oral anticoagulant therapeutic ranges: Venous thromboembolism prophylaxis or treatment: 2.0-3.0 CARDIOLOGY Standard range: 2.0-3.0 High-intensity range: 2.5-3.5 Refer to indication-specific guidelines for appropriate target ranges for prosthetic heart valve replacement. Current interpretive data was last revised on 2019. Blood 09/16/2024 4:36 PM CDT 09/16/2024 4:52 PM CDT Wendi Carias MD LAB BLOOD ORDERABLES Final Resul t Performing Organization Address City/[facility] Co de Phone Number [facility] [place] [address] * (ABNORMAL) CBC without differential (09/16/2024 4:36 PM CDT) Pathologist [facility] WBC 8.8 3.8 - 9.9 K/cumm Comment:Testing performed by : [facility], [address] [place] [phone] Hgb 16.6 13.0 - 17.5 g/dL [facility] Comment:Testing performed by : [facility], [address] [place] [address] Hct 48.2 38.9 - 50.3 % CERMINE BJ Comment:Testing performed by : [facility], [address] [place] [address] Plt 341 150 - 400 K/cumm CERMINE BJ Comment:Testing performed by : [facility], [address] [place] [address] MPV 6.7(L) 6.8 - 10.4 fL CERMINE BJ Comment:Testing performed by : [facility], [address] [place] [address] RBC 5.49 4.30 - 5.80 M/cumm CERMINE BJ Comment:Testing performed by : [facility], [address] [place] [address] MCV 87.8 81.3 - 96.4 fL CERMINE BJ Comment:Testing performed by : [facility], [address] [place] [address] MCH 30.2 27.1 - 33.3 pg [facility] Comment:Testing performed by : [facility], [address] [place] [address] MCHC 34.4 32.3 - 35.7 g/dL [facility] Comment:Testing performed by : [facility], [address] [place] [address] RDW CV 13.4 11.1 - 14.9 % C[facility]INE [facility] Comment:Testing performed by : [facility], [address] [place] [address] Blood 09/16/2024 4:36 PM CDT 09/16/2024 4:39 PM CDT us Wendi Carias MD LAB BLOOD ORDERABLES Final Resul t [facility] Department of Laboratories [place], [place] [id number] * Renal function panel (09/16/2024 4:36 PM CDT) Sodium 143 135 - 145 mmol/L Potassium, pl 4.3 3.3 - 4.9 mmol/L [facility] Chloride 108 97 - 110 mmol/L [facility] CO2 27 22 - 32 mmol/L [facility] Anion gap 8 2 - 15 mmol/L [facility] BUN 16 6 - 25 mg/dL [facility] Creatinine 0.97 0.80 - 1.30 mg/dL [facility] Glucose 94 70 - 199 mg/dL [facility] Comment: Interpretive Data Fasting glucose >/= 126 [...] classification and Diagnosis of Diabetes Diabetes Care 202; 46: S19-S40. Current interpretive data was last revised 2022. Calcium 9.5 8.5 - 10.3 mg/dL [facility] Phosphorus, pl 3.1 2.3 - 4.5 mg/dL [facility] Albumin 4.3 3.5 - 5.0 g/dL [facility] Blood 09/16/2024 4:36 PM CDT 09/16/2024 4:52 PM CDT us Wendi Carias MD LAB BLOOD ORDERABLES Final Resul t [facility] [place] [address] * US Thyroid (09/16/2024 8:12 AM CDT) [...] it. Electronically signed by: Maico Carmichael M.D. us Wendi Carias MD IM US PROCEDURES Final Result * Surgical pathology (08/18/2024 2:50 PM SWIMMING POOL ATTENDANT) Tissue specimen (specimen) (Miscellaneous) 08/18/2024 2:50 PM SWIMMING POOL ATTENDANT 08/18/2024 2:50 PM SWIMMING POOL ATTENDANT Narrative [facility] - 08/25/2024 5:37 PM SWIMMING POOL ATTENDANT EPIC results best viewed via link to PDF [facility] Pathology Consult Service [facility] [address], [place] [address] Note to Patients: This report [...] SURGICAL PATHOLOGY REPORT * Consult Report * [facility] is providing an additional review of previously collected tissue. FINAL Patient Name: HIREN BLAND Address: [address] [place] [address] Gender: M : 1970 (Age: 53) Hospital #: [id number] Patient Type: [facility] Location: UNKNOWN Taken: 08/18/2024 Received: 08/18/2024 Accessioned: 08/19/2024 Reported: 08/25/2024 Physician(s): Wendi Carias MD [facility] Department of Pathology [facility] [address] [place] [address] P: [phone] F: [phone] Histology: [phone] Diagnosis: Consult material received from [place], [place] (OSC: [id number]; 07/25/2024): A. Thyroid, right [...] of these lesions had sample sent to [facility] for molecular classifies assays, by report both [...] corresponding pathology report. The material originates from [place], [place]. Selected slide(s) may be digitally scanned for our files, and all materials are returned to the referring institution, along with a copy of our final report. Any testing required for diagnostic purposes was performed in the Department of Pathology and Immunology at [facility], [address] [place] [address] CLIA # [id number] The performance characteristics of the testing cited in this report (if any) were determined by the [facility] Department of Pathology and Immunology [facility], as part of an ongoing vice president quality assurance program and in compliance with federally mandated [...] and the performance characteristics determined by the [facility], [facility] Department of Pathology and Immunology. It has not been cleared or approved by the U.S. Food and Drug Administration. Any test designated as LDT was developed and its performance characteristics determined by [facility]. It has not been cleared or approved by the FDA. This test is used for clinical purposes and should not be regarded as investigational or for research. Report images and/or scanned reports, if included, only viewable in PDF version of report. us Wendi Carias MD LAB PATHOLOGY ORDERABLES Final R esult [facility] LAB [address] [address] from Last 3 Months Insurance [facility] ACCESS CHOICE [facility] ACCESS CHOICE Care Teams Special Education Paraeducator Relationship Specialty Start Date End Date Tim Montesinos MD [address] [place] [address] PCP - General Family Medicine 07/27/24
--- OUTSIDE RECORDS SUMMARY | 2024-10-06 14:43 | XMS_ITS | Encounter Summary ---
Author Organization [facility] Address [address] [facility] [address] [place] [address] Phone Care Team Providers Care Commercial Pest Control Representative Name Role Phone Tim Montesinos MD Primary Care Provide r Reason for Visit * Reason Onset Date Comments Medication Request 09/22/2024 Encounter Details Date Type Department Care Team (Late st Contact Info) Description 09/22/2024 Telephone [facility] Surgery [address] [facility] Floor 8 [place] [phone] Wendi Carias MD [address] [facility] [phone] [place], [place] [id number] Medication Request Social History Tobacco Use Types Packs/Day Years Used Date Smoking Tobacco: Former Cigarettes Smokeless Tobacco: Never Sex and Gender Information Value Date Recorded Sex Assigned at Not on file 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 No Reason for call?: Patient is calling to talk to Dr Wendi Carias regarding his Thyroid and to request medication for sleeping. Please call back Who is the caller: Patient What is the best number for them to contact for a call back: [phone] Last office visit: Visit date not found Date of Surgery: No surgery found documented in this encounter Plan of Treatment Upcoming Encounters Date Type Department Care Team (Latest Contact Info) Description 12/12/2024 7:30 AM CDT Hospital Encounter [facility] ([place]) [address] [place] [address] Wendi Carias MD [address] [facility] [phone] [place] [address] 12/12/2024 7:30 AM CDT - 12/12/2024 10:40 AM CDT Surgery [facility]) [facility] [place] [address] Wendi Carias MD [address] [facility] [phone] [place] [address] LEFT THYROID LOBECTOMY Scheduled Procedures Name Priority Associated Diagnoses Date/Ti me LOBECTOMY - THYROID Thyroid nodule 12/12/2024 7:30 AM CDT THYROIDECTOMY - TOTAL Thyroid nodule 12/12/2024 7:30 AM CDT EXCISION NECK/DISSECTION LYM PH NODE Thyroid nodule 12/12/2024 7:30 AM CDT documented as of this encounter Visit Diagnoses Not on filedocumented in this encounter Care Teams Commercial Pest Control Representative Relationship Specialty Start Date End Date Tim Montesinos MD [address] [place] [address] PCP - General Family Medicine 07/27/24 documented as of this encounter
--- OUTSIDE RECORDS SUMMARY | 2024-10-06 14:43 | XMS_ITS | Encounter Summary ---
Author Organization [facility] Address [address] [place] [address] Phone Care Team Providers Care Forensic Sergeant Name Role Phone Tim Montesinos MD Primary Care Provide r Encounter Details Date Type Department Care Team (Late st Contact Info) Description 10/05/2024 Telephone [facility] Floor 5 [place] [address] Tanvi Hoffman RN Social History Tobacco Use Types Packs/Day Years Used Date Smoking Tobacco: Former Cigarettes Smokeless Tobacco: Never Sex and Gender Information Value Date Recorded Sex Assigned at Not on file 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 He also reports excessive sweating and feeling overheated. Advised patient to contact PCP office to discuss prescription for insomnia as Dr. Carias is not ableto prescribe this medication as he is unable to follow pt closely enough to monitor use/adjust medication dosage as needed. Will update Dr. Carias with pt's currently symptoms of increased sweating and heat. Pt currently scheduled for first available surgery. Will keep patient in mind for cancellations. Tanvi Hoffman RN Clinical Nurse Coordinator to Dr. Jake Armstrong and Dr. Wendi Carias [facility] Department of Surgery - Division of Surgical Oncology documented in this encounter Plan of Treatment Upcoming Encounters Date Type Department Care Team (Latest Contact Info) Description 12/12/2024 7:30 AM CDT Hospital Encounter [facility]) [facility] [place] [address] Wendi Carias MD [address] [facility] [phone] [place] [address] 12/12/2024 7:30 AM CDT - 12/12/2024 10:40 AM CDT Surgery [facility]) [address] [place] [address] Wendi Carias MD [address] [facility] [phone] [place] [address] LEFT THYROID LOBECTOMY Scheduled Procedures Name Priority Associated Diagnoses Date/Ti me LOBECTOMY - THYROID Thyroid nodule 12/12/2024 7:30 AM CDT THYROIDECTOMY - TOTAL Thyroid nodule 12/12/2024 7:30 AM CDT EXCISION NECK/DISSECTION LYM PH NODE Thyroid nodule 12/12/2024 7:30 AM CDT documented as of this encounter Visit Diagnoses Not on filedocumented in this encounter Care Teams Forensic Sergeant Relationship Specialty Start Date End Date Tim Montesinos MD [address] [place] [address] PCP - General Family Medicine 07/27/24 documented as of this encounter
[2024-10-06 14:50] LABS: Basophils Absolute Auto 0.06 K/mm3 (0.00-0.10); Basophils Percent Auto 0.7 % (0.0-1.0); Eosinophils Absolute Auto 0.14 K/mm3 (0.02-0.50); Eosinophils Percent Auto 1.7 % (1.0-6.0); Hematocrit 48.9 % (40.0-54.0); Hemoglobin 16.6 g/dL (14.0-18.0); Immature Granulocyte Absolute 0.03 K/mm3 (0.00-0.00); Immature Granulocyte Percent A 0.4 % (0.0-0.0); Lymphocytes Absolute Auto 2.25 K/mm3 (1.10-4.50); Lymphocytes Percent Auto 27.3 % (18.0-42.0); Mean Corpuscular HGB Conc 33.9 g/dL (32-36); Mean Corpuscular Hemoglobin 29.5 pg (27.0-31.0); Mean Corpuscular Volume 86.9 fL (78.0-102.0); Mean Platelet Volume 8.3 fl (8.7-11.0); Monocytes Absolute Auto 0.76 K/mm3 (0.10-0.90); Monocytes Percent Auto 9.2 % (2.0-11.0); Neutrophils Absolute Auto 4.99 K/mm3 (1.70-7.20); Neutrophils Percent Auto 60.7 % (50.0-70.0); Platelet Count Result 287 K/mm3 (150-420); Red Blood Count 5.63 M/mm3 (4.70-6.10); Red Cell Distribution Width 12.5 % (11.6-14.4); White Blood Count 8.2 K/mm3 (4.8-10.8)
[2024-10-06 15:27] LABS: Alanine Aminotransferase 40 U/L (16-63); Albumin Level 3.9 g/dL (3.4-5.0); Alkaline Phosphatase 100 U/L (46-116); Anion Gap 10 mmol/L (4-12); Aspartate Amino Transferase 19 U/L (15-37); Bilirubin,Total 0.4 mg/dL (0.00-1.00); Blood Urea Nitrogen 19 mg/dL (7-18); Calcium 9.1 mg/dL (8.5-10.1); Carbon Dioxide 26 mmol/L (21-32); Chloride 106 mmol/L (98-108); Estimated Glomerular Filt Rate > 60; Free T4 Free Thyroxine 1.08 ng/dL (0.76-1.46); Glucose 108 mg/dL (70-99); Osmolality Calculated 297 mOsm/kg (285-295); Potassium 4.1 mmol/L (3.5-5.1); Sodium 142 mmol/L (136-145); Thyroid Stimulating Hormone 0.09 uIU/mL (0.36-3.74); Total Protein 7.2 g/dL (6.4-8.2)
[2024-10-06 15:50] LABS: Free T3 3.87 pg/mL (2.18-3.98)
[2024-10-08 04:19] LABS: Total Triiodothyronine (T3) 156 ng/dL (76-181)
== END 2024-10-06 14:38 | disposition home or self-care (01) ==
LOC: CHSLAB 14:38
PROVIDERS: PCP Family Medicine; Visit Provider Family Medicine
DX: R61 Generalized hyperhidrosis (principal); E07.9 Disorder of thyroid, unspecified; R53.83 Other fatigue
CPT/HCPCS: 36415; 80053; 84436; 84439; 84443; 84480; 84481; 85025

== ENCOUNTER 2025-01-27 07:44 | Outpatient (CLI) | payer BC, SELFPAY ==
--- OUTSIDE RECORDS SUMMARY | 2025-01-27 07:49 | XMS_ITS | Clinical Summary ---
Author Organization [address] Address [address] [place] [phone] Care Team Providers Care Treer Name Role Phone Tim Montesinos MD Primary Care Provide r Allergies No known active allergies Medications atomoxetine (STRATTERA) 80 mg capsule Take 1 capsule (80 mg total) by mouth every morning Active cetirizine (ZyrTEC) 10 mg tablet Take 1 tablet (10 mg total) by mouth every morning Active multivitamin tablet Take 1 tablet by mouth every morning Active ibuprofen (ADVIL,MOTRIN) 400 mg tablet Take 1 tablet (400 mg total) by mouth every 6 (six) hours as needed for pain (second line for pain not controlled by acetaminophen) 20 tablet 10/26/19 25 Active docusate sodium (COLACE) 100 mg capsuleIndications :constipation Take 1 capsule (100 mg total) by mouth 2 (two) times a day as needed for constipation Stop for loose stools. 30 capsule 10/26/19 25 Active Additional Information Patient not taking.Reported on 11/11/2024 ondansetron ODT (ZOFRAN-ODT) 4 mg disintegrating tablet Take 1 tablet (4 mg total) by mouth every 8 (eight) hours as needed for nausea or vomiting 10 tablet 10/26/19 25 Active levothyroxine (SYNTHROID) 150 mcg tablet Take 1 tablet (150 mcg total) by mouth binder cutter hand before breakfast 30 tablet 10/26/19 25 Active acetaminophen 500 mg capsuleIndications :Pain Take 2 capsules (1,000 mg total) by mouth every 6 (six) hours 30 tablet 10/26/19 25 Active calcium carbonate (OS-LINDEN) 1,250 mg (500 mg elemental) tabletIndications: Hypocalcemia Prevention Take 1 tablet (1,250 mg total) by mouth 3 (three) times a day 90 tablet 10/26/19 25 026 Active oxyCODONE (ROXICODONE) 5 mg immediate release tabletIndications: Pain Take 1 tablet (5 mg total) by mouth every 4 (four) hours as needed for pain 10 tablet 10/26/19 25 Active Additional Information Patient not taking.Reported on 11/11/2024 Active Problems Problem Noted Date Diagnosed Date Thyroid nodule 09/16/2024 Encounters Date Type Department Care Team Description 11/11/2024 3:30 PM CDT Office Visit [facility] Surgery [address] [place] [phone] Wendi Carias MD Thyroid nodule (Primary Dx) 10/31/2024 Results Follow-Up [facility] Surgery [address] [place] [phone] Wendi Carias MD Surgical pathology from Last 3 Months Immunizations Immunization Administration Dates Next Due MMRV 10/15/2017,09/11/2017 Tdap 03/27/2010 ZOSTER Recombinant 02/16/2023 Surgical History Surgery Date Site/Laterality Comments KIDNEY STONE SURGERY 06/22/2013 - 06/21/2014 VASECTOMY Medical History Medical History Date Comments Thyroid nodule Adhd Family History Medical History Relation Name Comments Anesthesia problems Neg Hx Malig Hyperthermia Neg Hx Pseudochol deficiency Neg Hx Social History Tobacco Use Types Packs/Day Years Used Date Smoking Tobacco: Never Smokeless Tobacco: Current Chew Tobacco Cessation:Ready to Q uit: Not Asked; Counseling Given: Not Answered AUDIT-C Answer Date Recorded Q1: How often do you have a drink containing alcohol? 4 or more times a week 10/24/2024 Q2: How many drinks containi ng alcohol do you have on a typical day when you are drinking? 1 or 2 Q3: How often do you have si x or more drinks on one occasion? Never 10/24/2024 Personal Safety Answer Date Recorded Have you ever been in or are you currently in a harmful physical or emotional relationship or is someone making you feel afraid or unsafe? 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 Gender Identity Not on file Sexual Orientation Not on file Obstetrics History Last Filed Vital Signs Vital Sign Reading Time Taken Comments Blood Pressure 120/83 11/11/2024 3:17 PM CDT Pulse 92 11/11/2024 3:17 PM CDT Temperature 36.6 C (97.8 F) 11/11/2024 3:17 PM CDT Respiratory Rate 18 11/11/2024 3:17 PM CDT Oxygen Saturation 98% 11/11/2024 3:17 PM CDT Inhaled Oxygen Concentration - - Weight 85.6 kg (188 lb 12.8 oz) 11/11/2024 3:17 PM CDT Height 170.2 cm (5' 7) 10/25/2024 8:25 AM CDT Body Mass Index 29.57 10/25/2024 8:25 AM CDT Plan of Treatment Health Maintenance Due Date Last Done Comments Colon Cancer Screening-Colonoscopy 1972 Depression Screening 1972 Hepatitis C Screening 1972 Prostate Cancer Screening-PSA 1972 Hepatitis B Screening 1990 Regular Well Visit/Exam 18-64 1990 DTaP/Tdap/Td Vaccine (2 - Td or Tdap) 03/27/2020 03/27/2010 Zoster Vaccine (2 of 2) 04/13/2023 02/16/2023 Covid-19 Vaccine (4 - 2023-2 5 season) 2024 06/25/2021, 09/18/2020, 08/28/2020 Influenza Vaccine (#1) 2025 Pneumococcal vaccine <65 Aged Out No longer eligible based on patient's age to complete this topic Insurance [facility] ACCESS CHOICE [facility] ACCESS CHOICE Advance Directives For more information, please contact: [phone] Documents on File Type Date Recorded Patient Wire Bound Box Machine Helper Expl anation ADVANCE DIRECTIVE 10/29/2024 4:53 AM LIVIN G WILL ADVANCE DIRECTIVE 10/29/2024 4:53 AM POWER OF FOOD AND BEVERAGE SERVER-MEDICAL ADVANCE DIRECTIVE 10/29/2024 4:53 AM POWER OF FOOD AND BEVERAGE SERVER-MEDICAL ADVANCE DIRECTIVE 10/24/2024 7:58 PM LIVING WILL ADVANCE DIRECTIVE 10/24/2024 7:58 PM POWER OF FOOD AND BEVERAGE SERVER-MEDICAL ADVANCE DIRECTIVE 10/24/2024 7:31 PM LIVING WILL * Full Code (Latest Code Status on File) Date Activated Date Inactivated Comments 10/24/2024 6:49 PM 10/25/2024 4:26 PM Care Teams Treer Relationship Specialty Start Date End Date Tim Montesinos MD [address] [place] [address] PCP - General Family Medicine 07/27/24
[2025-01-27 08:45] LABS: Thyroid Stimulating Hormone 25.000 uIU/mL (0.465-4.680)
== END 2025-01-27 07:45 | disposition home or self-care (01) ==
LOC: CHSLAB 07:46
PROVIDERS: PCP Family Medicine; Visit Provider Family Medicine
DX: E03.9 Hypothyroidism, unspecified (principal)
CPT/HCPCS: 36415; 84443

== ENCOUNTER 2025-03-24 07:40 | Outpatient (CLI) | payer BC, SELFPAY ==
--- OUTSIDE RECORDS SUMMARY | 2025-03-24 07:47 | XMS_ITS | Clinical Summary ---
Author Organization [address] Address [address] [place] [id number] Care Team Providers Care Chemist Steroids Name Role Phone Tim Montesinos MD Primary [...] 1 tablet (150 mcg total) by mouth subcontract administrator before breakfast 30 tablet 10/26/19 25 Active [...] Noted Date Diagnosed Date Thyroid nodule 09/16/2024 Immunizations Immunization Administration Dates Next Due MMRV [...] on file Legal Sex Male 4:20 PM [employer]AR[employer] Gender Identity Not on file Sexual Orientation [...] 2) 04/13/2023 02/16/2023 Covid-19 Vaccine (4 - 2024-2 6 season) 2025 06/25/2021, 09/18/2020, 08/28/2020 Influenza Vaccine (#1) 2025 Pneumococcal vaccine <65 Aged Out No longer eligible based on patient's age to complete this topic Insurance [facility] ACCESS CHOICE Member Subscriber Plan / Payer (Ef fective 2021-Present) Name:Hiren Espinoza Relation to Subscriber:Self Name:Hiren Espinoza Payer ID:[id number] (NAIC) Type: NNAY Address: [facility] [id number] [place] [id number] ANTH ACCESS CHOICE Advance Directives For more information, please contact: [phone] Documents on File Type Date Recorded Patient Insurance [employer] ADVANCE DIRECTIVE 10/29/2024 4:53 AM LIVIN G WILL ADVANCE DIRECTIVE 10/29/2024 4:53 AM POWER OF VEHICLE FARE COLLECTOR-MEDICAL ADVANCE DIRECTIVE 10/29/2024 4:53 AM POWER OF VEHICLE FARE COLLECTOR-MEDICAL ADVANCE DIRECTIVE 10/24/2024 7:58 PM LIVING WILL ADVANCE DIRECTIVE 10/24/2024 7:58 PM POWER OF VEHICLE FARE COLLECTOR-MEDICAL ADVANCE DIRECTIVE 10/24/2024 7:31 PM LIVING WILL * Full Code (Latest Code Status on File) Date Activated Date Inactivated Comments 10/24/2024 6:49 PM 10/25/2024 4:26 PM Care Teams Chemist Steroids Relationship Specialty Start Date End Date Tim Montesinos MD [address] [place] [address] PCP - General Family Medicine 07/27/24
[2025-03-24 09:20] LABS: Thyroid Stimulating Hormone 7.950 uIU/mL (0.465-4.680)
== END 2025-03-24 07:41 | disposition home or self-care (01) ==
LOC: CHSLAB 07:44
PROVIDERS: PCP Family Medicine; Visit Provider Family Medicine
DX: E03.9 Hypothyroidism, unspecified (principal)
CPT/HCPCS: 36415; 84443